=== PATIENT | female | born 1995 ===

== ENCOUNTER 2017-01-08 00:33 | Emergency (ER) | payer OTHER ==
[~2017-01-08] VITALS: Ht 160 cm; Wt 66.4 kg
[2017-01-08 00:35] VITALS: TEMP 37.3; Ht 160 cm; Wt 66.4 kg
[2017-01-08] MEDS ORDERED: MULT-506 PO (00:50)
[2017-01-08 03:12] VITALS: BP 113/65; PULSE 75; O2SAT 98
--- NOTE | 2017-01-08 05:30 | EMERGENCY ROOM VISIT NOTE ---
History First contact with patient: 00:40 Chief Complaint: HEAD INJURY (MINOR) Stated Complaint: HEADACHE,DULL BUT PRESANT,SWOLLEN CHECK,FALL History of Present Illness The patient is a 21 year old female who presents to the Emergency Room with complaints of persisting headache symptoms with nausea for the past 12 hours. The patient states that she was rock climbing, when she lost her import coordination and production head, and fell roughly 5 or 6 feet to the ground. The patient landed awkwardly and believes that she may have struck her left-sided face off her knee. The patient did not lose consciousness or seizure-like activity after the injury. She has not had blood or bleeding. She has mild dizziness. The patient contacted her on-call nurse, who referred her to the ER for further management. The patient considers herself usually healthy and does not take medication on regular basis. She has not taken Advil or Tylenol. She is not on blood thinners. The patient does not report neck pain, chest pain, abdominal pain, or extremity injury. She rates her overall discomfort a 4/10. Review of Systems More than 10 systems were reviewed and otherwise negative with the exception of history of present illness. Past Medical/Surgical History No chronic medical disease Family History No pertinent family history Social History Smoking Status: Never Smoker Occupation Status: [employer] student Current/Historical Medications Scheduled Multivitamin (Multivitamin), 1 TAB PO DAILY Physical Exam Vital Signs Date Time Temp Pulse Resp B/P (MAP) Pulse Ox O2 Delivery O2 Flow Rate FiO2 01/08/17 03:12 75 16 113/65 98 Room Air 01/08/17 00:35 37.3 91 16 141/96 98 Room Air Pain Rating (0-10): 2.0 Physical Exam VITALS: Vitals are noted on the nurse's note and reviewed by myself. Vital signs stable. GENERAL: Well-developed, well-nourished, female, who is in no acute distress and resting comfortably. Patient is cooperative with the examination. GCS 15 HEAD: Normocephalic atraumatic. No lim sign or raccoon eyes. Mild left- sided facial tenderness is noted on exam. EARS: External ear normal. External auditory canals clear, tympanic membranes pearly dean without erythema or effusion bilaterally. EYES: Pupils equal round and reactive to light and accommodation. Conjunctivae without injection, sclerae without icterus. Extraocular movements intact. NOSE: Patent, turbinates without inflammation or discharge. MOUTH: Mucous membranes moist. Tonsils are not enlarged. Pharynx without erythema, blood, or exudate. Uvula midline. Airway patent. NECK: Supple without nuchal rigidity. No lymphadenopathy. No thyromegaly. Cervical spine is nontender. HEART: Regular rate and rhythm without murmurs gallops or rubs. LUNGS: Clear to auscultation bilaterally without wheezes, rales or rhonchi. No retractions or accessory muscle use. ABDOMEN: Positive normal bowel sounds x 4. Soft, nontender, without masses or organomegaly. No guarding or rebound tenderness. MUSCULOSKELETAL: No muscle atrophy, erythema, or edema noted. Full range of motion without joint tenderness in all extremities. No tenderness to palpation. Normal gait. Strength 5/5 throughout. NEURO: Patient was alert and oriented to person place and time. CN II through XII grossly intact. Medical Decision & Procedures ER Provider Diagnostic Interpretation: Preliminary Findings Only See Final Report For Complete Findings CT HEAD: No evidence of acute infarct, hemorrhage, mass or edema. No acute calvarial abnormality. Sinuses are patent. Preliminary Findings Only See Final Report For Complete Findings CT FACIAL: Mild soft tissue swelling noted about the left face, likely posttraumatic. No foreign bodies. No facial bone fracture identified. Sinuses are grossly patent. The globes and orbits are unremarkable. ED Course Physical exam and history were performed. Nursing notes, EMR, and Medication List were personally reviewed. Patient appears to have suffered head/facial injury after falling while rock climbing earlier in the day. On examination the patient does have some left sided facial tenderness. She does not have other significant or signs of trauma. I discussed options of care the patient and elected to perform CT scan of the head and face. CT scans do not show evidence of acute fracture, bleed, or other significant traumatic injuries. Overall I suspect the patient likely has symptoms related to a closed head injury. She may use [id number] analgesics for pain control. I recommended that she follow with [facility] for further care and management. She is otherwise over-the- counter ER with any new, worsening, or concerning symptoms. The chart was completed utilizing [employer]ognition Software. Grammatical errors, random word insertions, pronoun errors, and incomplete sentences are an occasional consequence of this system due to software limitations, ambient noise, and hardware issues. Any formal questions or concerns about the content, text, or information contained within the body of this dictation should be directly addressed to the provider for clarification. . Medical Decision Differential diagnosis: Etiologies such as concussion, contusion, fracture, subdural hematoma, epidural hematoma, intraparenchymal hemorrhage, as well as other traumatic pathologies were entertained. Impression Primary Impression: Closed head injury Departure Information Dispostion Home / Self-Care Condition GOOD Referrals [facility] (PCP) Forms HOME CARE DOCUMENTATION FORM, IMPORTANT VISIT INFORMATION Patient Instructions My [facility] Additional Instructions You were seen and evaluated today on an emergency basis only. This is not a substitute for, or an effort to provide, complete comprehensive medical care. It is not possible to recognize and treat all injuries or illnesses in a single emergency department visit. For this reason it is recommended that you followup with [facility] for any ongoing or persistent symptoms. For baseline pain relief you may alternate ibuprofen and acetaminophen every 4 hours for pain control. Take 600 mg ibuprofen (Advil) and then 4 hours later take 1000 mg acetaminophen (Tylenol). Do not take more than 3000 mg acetaminophen in a single day. You are welcome to return to the emergency department anytime with new, worsening, or concerning symptoms.
--- NOTE | 2017-01-08 07:26 | DIAGNOSTIC IMAGING REPORT ---
MAXILLOFACIAL CT WITHOUT CONTRAST CLINICAL HISTORY: Fall while rock climbing. Left side head/face injury. COMPARISON STUDY: None. TECHNIQUE: A maxillofacial CT was performed without IV contrast. Coronal and sagittal reformats were viewed. A dose lowering technique was utilized adhering to the principles of ALARA. FINDINGS: A left facial contusion is present. There is no acute facial fracture. Globes are intact. There is no retrobulbar hematoma. Alignment of the temporomandibular joints is anatomic. There is no skull base fracture. No fracture is visualized within the upper cervical spine. IMPRESSION: 1. No acute facial fracture. 2. Small left facial contusion. Electronically signed by: Sushil Banda M.D. 01/08/2017 7:25 AM Dictated Date/Time: 01/08/2017 7:21 AM
--- NOTE | 2017-01-08 07:30 | DIAGNOSTIC IMAGING REPORT ---
HEAD CT NONCONTRAST CT DOSE: 638.56 mGycm HISTORY: Fall while rock climbing. Left side head/face injury TECHNIQUE: Multiaxial CT images of the head were performed without the use of intravenous contrast. Automated exposure control was utilized for this study. A dose lowering technique was utilized adhering to the principles of ALARA. Comparison: None. Findings: The paranasal sinuses and mastoid air cells are clear. The calvarium and skull base are intact. The ventricles and sulci are within normal limits. There is no mass, hematoma, midline shift, or acute infarct. Impression: No acute intracranial abnormality. Electronically signed by: Roshan Oconnell M.D. 01/08/2017 7:29 AM Dictated Date/Time: 01/08/2017 7:27 AM
== END 2017-01-08 03:12 | disposition home or self-care (01) ==
LOC: C.EDB 00:35 → C.EDA 03:12
DX: S09.90XA Unspecified injury of head, initial encounter (principal); W17.89XA Other fall from one level to another, initial encounter; Y92.89 Other specified places as the place of occurrence of the external cause; Y93.31 Activity, mountain climbing, rock climbing and wall climbing